=== PATIENT | male | born 1985 | race African-American/Black ===

== ENCOUNTER 2016-11-20 18:19 | Emergency (ER) | payer OTHER ==
[2016-11-20] MEDS ORDERED: ONDANSETRON 4MG/2ML VIAL (J2405) As Ordered ONE (18:39)
[2016-11-20] MEDS ORDERED: KETOROLAC 30 MG/ML VIAL (J1885) As Ordered ONE (18:39)
[2016-11-20 19:05] LABS: BASO # 0.1 K/mm3 (0.0-0.2); BASO % 0.7 % (0.0-1.0); EOS # 0.1 K/mm3 (0.0-0.50); EOS % 1.2 % (0.0-3.0); LARGE UNSTAINED CELL # 0.1 K/mm3 (0.0-0.4); LARGE UNSTAINED CELL % 0.6 % (0.0-4.0); LYMPH # 0.7 K/mm3 (1.5-4.5); LYMPH % 7.1 % (24.0-44.0); MEAN CORPUSCULAR HEMOGLOBIN 28.1 pg (27.0-33.0); MEAN CORPUSCULAR HGB CONC 32.6 g/dl (32.0-36.5); MEAN CORPUSCULAR VOLUME 86.1 fl (80.0-96.0); MONO # 0.4 K/mm3 (0.0-0.8); MONO % 4.2 % (0.0-5.0); NEUTROPHILS # 7.7 K/mm3 (1.8-7.7); NEUTROPHILS % 86.2 % (36.0-66.0); PLATELET COUNT, AUTOMATED 225 k/mm3 (150-450); RED CELL DISTRIBUTION WIDTH 13.1 % (11.5-14.5); WHITE BLOOD COUNT 8.9 K/mm3 (4.0-10.0)
--- NOTE | 2016-11-20 19:30 | REPUSA ---
CLINICAL HISTORY: Abdominal pain. TECHNIQUE: Multiple axial, sagittal and coronal CT images were obtained through the abdomen and pelvi s without administration of oral or IV contrast material. COMMENTS: The liver is of uniform attenuation without mass or defect. There is no intra or extrahepatic biliary ductal dilatation. The spleen is normal. The gallbladder is within normal limits. The pancreas is of normal contour and attenuation characteristics. There is no evidence of adrenal mass. The kidneys are normal in size, shape and configuration. No right renal or ureteral calculi are ident ified. 2 nonobstructing calculi noted in the midpole the left kidney measuring 2-3 mm each. There i s no hydroureter or hydronephrosis. There is no evidence for appendicitis. There is no bowel wall thickening. No evidence for small or la rge bowel obstruction. There is no evidence of abdominal ascites or lymphadenopathy. There is no evidence of intrinsic or extrinsic bladder mass. There is no pelvic ascites or lymphadeno daisha. Images of the lung bases show no evidence of pleural or parenchymal mass. There are no pleural effusi ons. The bony structures are free of lytic or blastic lesions. IMPRESSION: 2 nonobstructing calculi noted in the midpole the left kidney measuring 2-3 mm each. Thank you for your kind referral of this patient.
[2016-11-20 20:35] LABS: ALBUMIN 4.3 GM/DL (3.2-5.2); ALKALINE PHOSPHATASE 76 U/L (45-117); ALT/SGPT 17 U/L (12-78); AMYLASE 47 U/L (25-115); ANION GAP 8 MEQ/L (8-16); AST/SGOT 15 U/L (15-37); BILIRUBIN,DIRECT 0.2 MG/DL (0.0-0.2); BILIRUBIN,TOTAL 0.6 MG/DL (0.2-1.0); BLOOD UREA NITROGEN 10 MG/DL (7-18); CALCIUM LEVEL 9.2 MG/DL (8.5-10.1); CARBON DIOXIDE LEVEL 30 MEQ/L (21-32); CHLORIDE LEVEL 106 MEQ/L (98-107); CREATININE FOR GFR 1.13 MG/DL (0.70-1.30); GLOMERULAR FILTRATION RATE > 60.0 (>60); GLUCOSE, FASTING 95 MG/DL (70-105); SODIUM LEVEL 144 MEQ/L (136-145); TOTAL PROTEIN 7.6 GM/DL (6.4-8.2)
[2016-11-20] MEDS ORDERED: CIPROFLOXACIN 500 MG TAB As Ordered ONE (21:05)
--- NOTE | 2016-11-20 21:18 | EDDOCDS ---
Physician Documentation [facility] Name: Terell Knowles Age: 31 yrs Sex: Male : 1985 Arrival Date: 11/20/2016 Time: 18:19 Bed I6 / 28 Private MD: Unknown Pcp Disposition: 11/20/16 20:59 Discharged to Home/Self Care. Impression: Calculus of kidney - 2 MM, LEFT KIDNEY, NONOBSTRUCTING, Hematuria - RECENTLY PASSED STONE. - Condition is Stable. - Discharge Instructions: Kidney Stones. - Prescriptions for Cipro 500 mg Oral Tablet - take 1 tablet by ORAL route every 12 hours; 14 tablet. Ibuprofen 600 mg Oral Tablet - take 1 tablet by ORAL route every 6 hours As needed take with food; 30 tablet. Flomax 0.4 mg Oral Capsule, Sust. Release 24 hr - take 1 capsule by ORAL route once daily 1/2 hour following the same meal each day; 30 capsule. - Medication Reconciliation, Local Pharmacy Hours form. - Follow up: Ross Womack; When: 2 - 3 days; Reason: Recheck today's complaints, Continuance of care. - Problem is new. - Symptoms have improved. - Notes: USE MEDICATIONS INSTRUCTED, FOLLOW UP WITH DR WOMACK, RETURN TO THE ER IF THE SYMPTOMS WORSEN OR BECOME CONCERNING Historical: - Allergies: no known allergies; - Home Meds: 1. none - PMHx: back pain; - PSHx: none; - Social history: Smoking status: Patient states was never smoker of tobacco. No barriers to communication noted, The patient speaks fluent Arabic. - Family history: Not pertinent. - : The pt / caregiver states he / she is not on anticoagulants. Home medication list is obtained from the patient. - Exposure Risk Screening:: None identified. Vital Signs: 11/20 18:21 BP 162 / 85; Pulse 71; Resp 16; Temp 98.9; Pulse Ox 99% ; Weight 74.84 kg / 164.99 lbs; elp Height 5 ft. 9 in. (175.26 cm); Pain 10/10; 18:21 Body Mass Index 24.37 (74.84 kg, 175.26 cm) elp MDM: 18:33 Undress patient appropriately for examination ordered. ck7 18:33 IV Saline Lock ordered. ck7 18:33 NS 0.9% 1000 ml IV at bolus once ordered. ck7 18:33 ketorolac 30 mg IVP once ordered. ck7 18:33 Ondansetron 4 mg IVP once ordered. ck7 18:34 NOTHING BY MOUTH+DIET ordered. EDMS 18:34 Amylase Ordered. EDMS 18:35 Basic Metabolic Profile Ordered. EDMS 18:35 CBC with Diff Ordered. EDMS 18:35 Lipase Ordered. EDMS 18:35 Liver Profile Ordered. EDMS 18:35 Urinalysis Ordered. EDMS 18:35 Urine Culture Ordered. EDMS 18:35 CT ABD & PELVIS: No Contrast Ordered. EDMS 18:40 Financial registration complete. [email or web address] 18:44 [facility] Payment Agreement was scanned into [employer] and attached to record. ks16 19:07 Renal stone analysis Ordered. EDMS 20:51 CBC with Diff Reviewed. ck7 20:51 Lipase Reviewed. ck7 20:51 Urinalysis Reviewed. ck7 20:51 Amylase Reviewed. ck7 20:51 Basic Metabolic Profile Reviewed. ck7 20:51 Liver Profile Reviewed. ck7 20:51 CT ABD & PELVIS: No Contrast Reviewed. ck7 21:00 Ciprofloxacin 500 mg PO once ordered. ck7 Administered Medications: 18:53 Drug: NS 0.9% 1000 ml [sodium chloride 0.9 % intravenous solution] Route: IV; Rate: jmb bolus; Site: right antecubital; 21:15 Follow up: IV Status: Completed infusion cz 18:53 Drug: ketorolac 30 mg [ketorolac 30 mg/mL (1 mL) injection solution (1 mL)] Route: IVP; [facility] Site: right antecubital; 18:53 Drug: Ondansetron 4 mg [ondansetron HCl 2 mg/mL intravenous solution (2 mL)] Route: jmb IVP; Site: right antecubital; 21:14 Drug: Ciprofloxacin 500 mg [ciprofloxacin 500 mg tablet (1 tabs)] Route: PO; cz Signatures: [facility] Oneil Cain RN RN cz Raymond, Jessica, RN RN jjr Kwaczala, Christopher, RPA-C RPA-Cck7 Warren Hernandez RN RN jmb Sorenson, Kimberly, Reg Reg [email or web address] The chart was reviewed and I authenticate all verbal orders and agree with the evaluation and treatment provided.Attachments: 18:44 [facility] Payment Agreement [email or web address] [facility]
--- NOTE | 2016-11-20 21:19 | EDDOCDS ---
Nurse's Notes [facility] Name: Terell Knowles Age: 31 yrs Sex: Male : 1985 Arrival Date: 11/20/2016 Time: 18:19 Bed I6 / 28 Private MD: Unknown Pcp Diagnosis: Calculus of kidney-2 MM, LEFT KIDNEY, NONOBSTRUCTING;Hematuria-RECENTLY PASSED STONE Presentation: 11/20 18:25 Presenting complaint: Patient states: sudden onset RUQ pain radiating to right mid back jjr at 1600 today with one episode of vomiting. Acute neurological deficits are not present. Mechanism of Injury: No Mechanism of Injury. Adult Sepsis Screening: The patient does not have new or worsening altered mentation. Patient's respiratory rate is less than 22. Systolic blood pressure is greater than 100. Patient has a qSOFA score of 0- Negative Sepsis Screen. Suicide/Homicide risk assessment- the patient denies having any suicidal and/or homicidal ideations and does not present with any other emotional, behavioral or mental health complaints. Status: Patient is not a medical billing service or dependent. Transition of care: patient was not received from another setting of care. 18:25 Acuity: ADARSH Level 3 jjr 18:25 Method Of Arrival: Walkin/Carried/Asstd jjr Triage Assessment: 18:27 General: Appears in no apparent distress. Pain: Location: right upper quadrant. Pt jjr Declines HIV testing. Musculoskeletal: Reports pain in right mid back and right upper quadrant. Historical: - Allergies: no known allergies; - Home Meds: 1. none - PMHx: back pain; - PSHx: none; - Social history: Smoking status: Patient states was never smoker of tobacco. No barriers to communication noted, The patient speaks fluent Georgian. - Family history: Not pertinent. - : The pt / caregiver states he / she is not on anticoagulants. Home medication list is obtained from the patient. - Exposure Risk Screening:: None identified. Screenin:56 Screening information is obtained from the patient. Fall risk: No risks identified. jmb Assistance ADL's: requires no assistance with activities of daily living. Abuse/DV Screen: The patient / caregiver reports he/she is: not in a situation that causes fear, pain or injury. Nutritional screening: No deficits noted. home support is adequate. Assessment: 18:54 General: Appears in no apparent distress, Behavior is appropriate for age, cooperative. jmb General: Patient has cuffs on from correctional facility. Right cuff taken off by correction office for IV access. Left one intact. Circulation intact. Nail beds pink, pipe fitter welding equal. Bilateral pulses present. . Pain: Location: back and right mid back and abdomen and right upper quadrant Pain currently is 8 out of 10 on a pain scale. Neurological: Level of Consciousness is awake, alert, obeys commands, Oriented to person, place, time, Facility Security Officer are equal bilaterally Speech is normal. Cardiovascular: Capillary refill < 3 seconds Heart tones S1 S2 present Pulses are all present. Respiratory: Airway is patent Respiratory effort is even, unlabored, Respiratory pattern is regular, symmetrical, Breath sounds are clear bilaterally. GI: Abdomen is non- distended Bowel sounds present X 4 quads. Abd is soft X 4 quads. Derm: Skin is normal. Musculoskeletal: Range of motion intact in all extremities. 19:30 General: Appears in no apparent distress, comfortable, Behavior is appropriate for age, jmb cooperative. Neurological: Level of Consciousness is awake, alert, obeys commands, Oriented to person, place, time. Respiratory: Airway is patent Respiratory effort is even, unlabored, Respiratory pattern is regular, symmetrical. 20:04 General: Appears in no apparent distress, comfortable, Behavior is appropriate for age, jmb cooperative, Patient sitting on side of stretcher with correctional officers at bedside. Patient cuffs off arms. NO voiced complaints at this time. . Neurological: Level of Consciousness is awake, alert, obeys commands, Oriented to person, place, time. Respiratory: Airway is patent Respiratory effort is even, unlabored, Respiratory pattern is regular, symmetrical. 20:46 General: Appears in no apparent distress, comfortable, Behavior is appropriate for age, jmb cooperative, Patient sitting on side of stretcher with guards at bedside. Patient laughing and talking. NO voiced complaints at this time. . Neurological: Level of Consciousness is awake, alert, obeys commands. Respiratory: Airway is patent Respiratory effort is even, unlabored, Respiratory pattern is regular, symmetrical. Vital Signs: 18:21 BP 162 / 85; Pulse 71; Resp 16; Temp 98.9; Pulse Ox 99% ; Weight 74.84 kg; Height 5 ft. elp 9 in. (175.26 cm); Pain 10/10; 18:21 Body Mass Index 24.37 (74.84 kg, 175.26 cm) [facility] Vitals: 18:21 Log In Time: November 20, 2016 at 18:19. elp ED Course: 18:21 Patient visited by Raine Enrique PCA. elp 18:21 Unknown Pcp is Private Physician. elp 18:21 Patient moved to Waiting elp 18:22 Patient visited by Raine Enrique PCA. elp 18:22 Patient moved to Pre RCE elp 18:25 Patient moved to I6 / jjr 18:26 Triage Initiated jjr 18:29 [facility] Short [facility]C [facility] ck7 18:29 Sakshi Whitehead MD is Attending Physician. ck7 18:29 Patient visited by Mykel Short RPA-C. ck7 18:35 Patient visited by Jah Patterson PCA. [facility] 18:44 [facility] Payment Agreement was scanned into [employer] and attached to record. ks16 18:53 Patient name changed from Terell\S\\S\Benson\S\ to Terell\S\ \S\Benson. EDMS 18:53 Amylase Sent. jmb 18:53 Basic Metabolic Profile Sent. jmb 18:53 CBC with Diff Sent. jmb 18:53 Lipase Sent. jmb 18:53 Liver Profile Sent. jmb 18:56 The patient / caregiver is instructed regarding the plan of care and ED course. jmb 18:56 Inserted saline lock: 20 gauge in right antecubital area and blood collected. The b patient tolerated the procedure well. Labs drawn. (by ED staff). Sent per order to lab. 18:57 Patient visited by Warren Hernandez RN. jmb 19:09 Urinalysis Sent. jmb 19:09 Urine Culture Sent. jmb 19:12 Renal stone analysis Sent. jmb 19:30 Patient visited by Mykel Short RPA-C. ck7 19:59 CT ABD & PELVIS: No Contrast Returned. EDMS 20:06 Patient visited by Warren Hernandez RN. jmb 20:47 Patient visited by Warren Hernandez RN. jmb 20:59 Ross Gabriel is Referral Physician. ck7 21:17 No procedures done that require assistance. cz Administered Medications: 18:53 Drug: NS 0.9% 1000 ml [sodium chloride 0.9 % intravenous solution] Route: IV; Rate: jmb bolus; Site: right antecubital; 21:15 Follow up: IV Status: Completed infusion cz 18:53 Drug: ketorolac 30 mg [ketorolac 30 mg/mL (1 mL) injection solution (1 mL)] Route: IVP; jmb Site: right antecubital; 18:53 Drug: Ondansetron 4 mg [ondansetron HCl 2 mg/mL intravenous solution (2 mL)] Route: jmb IVP; Site: right antecubital; 21:14 Drug: Ciprofloxacin 500 mg [ciprofloxacin 500 mg tablet (1 tabs)] Route: PO; cz Order Results: Lab Order: Amylase; SPEC'M 11/20/16 19:48 Test: AMYLASE; Value: 47; Range: 25-115; Units: U/L; Status: F Lab Order: Basic Metabolic Profile; SPEC'M 11/20/16 19:48 Test: GLUCOSE, FASTING; Value: 95; Range: 70-105; Units: MG/DL; Status: F Test: BLOOD UREA NITROGEN; Value: 10; Range: 7-18; Units: MG/DL; Status: F Test: CREATININE FOR GFR; Value: 1.13; Range: 0.70-1.30; Units: MG/DL; Status: F Test: GLOMERULAR FILTRATION RATE; Value: > 60.0; Range: >60; Status: F Test: SODIUM LEVEL; Value: 144; Range: 136-145; Units: MEQ/L; Status: F Test: POTASSIUM SERUM; Value: 4.0; Range: 3.5-5.1; Units: MEQ/L; Status: F Test: CHLORIDE LEVEL; Value: 106; Range: 98-107; Units: MEQ/L; Status: F Test: CARBON DIOXIDE LEVEL; Value: 30; Range: 21-32; Units: MEQ/L; Status: F Test: ANION GAP; Value: 8; Range: 8-16; Units: MEQ/L; Status: F Test: CALCIUM LEVEL; Value: 9.2; Range: 8.5-10.1; Units: MG/DL; Status: F Test Note: ; Units are mL/min/1.73 m2 Chronic Kidney Disease Staging per NKF: Stage I & II GFR >=60 Normal to Mildly Decreased Stage III GFR 30-59 Moderately Decreased Stage IV GFR 15-29 Severely Decreased Stage V GFR <15 Very Little GFR Left ESRD GFR <15 on INSIDE PHONE SALES Lab Order: CBC with Diff; JOSUE 11/20/16 18:50 Test: WHITE BLOOD COUNT; Value: 8.9; Range: 4.0-10.0; Units: K/mm3; Status: F Test: RED BLOOD COUNT; Value: 4.64; Range: 4.30-6.10; Units: M/mm3; Status: F Test: HEMOGLOBIN; Value: 13.0; Range: 14.0-18.0; Abnormal: Below low normal; Units: g/dl; Status: F Test: HEMATOCRIT; Value: 39.9; Range: 42.0-52.0; Abnormal: Below low normal; Units: %; Status: F Test: MEAN CORPUSCULAR VOLUME; Value: 86.1; Range: 80.0-96.0; Units: fl; Status: F Test: MEAN CORPUSCULAR HEMOGLOBIN; Value: 28.1; Range: 27.0-33.0; Units: pg; Status: F Test: MEAN CORPUSCULAR HGB CONC; Value: 32.6; Range: 32.0-36.5; Units: g/dl; Status: F Test: RED CELL DISTRIBUTION WIDTH; Value: 13.1; Range: 11.5-14.5; Units: %; Status: F Test: PLATELET COUNT, AUTOMATED; Value: 225; Range: 150-450; Units: k/mm3; Status: F Test: NEUTROPHILS %; Value: 86.2; Range: 36.0-66.0; Abnormal: Above high normal; Units: %; Status: F Test: LYMPH %; Value: 7.1; Range: 24.0-44.0; Abnormal: Below low normal; Units: %; Status: F Test: MONO %; Value: 4.2; Range: 0.0-5.0; Units: %; Status: F Test: EOS %; Value: 1.2; Range: 0.0-3.0; Units: %; Status: F Test: BASO %; Value: 0.7; Range: 0.0-1.0; Units: %; Status: F Test: LARGE UNSTAINED CELL %; Value: 0.6; Range: 0.0-4.0; Units: %; Status: F Test: NEUTROPHILS #; Value: 7.7; Range: 1.8-7.7; Units: K/mm3; Status: F Test: LYMPH #; Value: 0.7; Range: 1.5-4.5; Abnormal: Below low normal; Units: K/mm3; Status: F Test: MONO #; Value: 0.4; Range: 0.0-0.8; Units: K/mm3; Status: F Test: EOS #; Value: 0.1; Range: 0.0-0.50; Units: K/mm3; Status: F Test: BASO #; Value: 0.1; Range: 0.0-0.2; Units: K/mm3; Status: F Test: LARGE UNSTAINED CELL #; Value: 0.1; Range: 0.0-0.4; Units: K/mm3; Status: F Lab Order: Lipase; SPEC'M 11/20/16 19:48 Test: LIPASE; Value: 57; Range: 73-393; Abnormal: Below low normal; Units: U/L; Status: F Lab Order: Liver Profile; SPEC'M 11/20/16 19:48 Test: AST/SGOT; Value: 15; Range: 15-37; Units: U/L; Status: F Test: ALT/SGPT; Value: 17; Range: 12-78; Units: U/L; Status: F Test: ALKALINE PHOSPHATASE; Value: 76; Range: 45-117; Units: U/L; Status: F Test: BILIRUBIN,TOTAL; Value: 0.6; Range: 0.2-1.0; Units: MG/DL; Status: F Test: BILIRUBIN,DIRECT; Value: 0.2; Range: 0.0-0.2; Units: MG/DL; Status: F Test: TOTAL PROTEIN; Value: 7.6; Range: 6.4-8.2; Units: GM/DL; Status: F Test: ALBUMIN; Value: 4.3; Range: 3.2-5.2; Units: GM/DL; Status: F Test: ALBUMIN/GLOBULIN RATIO; Value: 1.30; Range: 1.00-1.93; Status: F Lab Order: Urinalysis; SPEC'M 11/20/16 19:03 Test: APPEARANCE, URINE; Value: CLEAR; Range: CLEAR; Status: F Test: COLOR, URINE; Value: YELLOW; Range: YELLOW; Status: F Test: PH,URINE; Value: 7.0; Range: 5.0-9.0; Units: UNITS; Status: F Test: SPECIFIC GRAVITY URINE AUTO; Value: 1.009; Range: 1.002-1.035; Status: F Test: PROTEIN, URINE AUTO; Value: NEGATIVE; Range: NEGATIVE; Units: mg/dL; Status: F Test: GLUCOSE, URINE (UA) AUTO; Value: NEGATIVE; Range: NEGATIVE; Units: mg/dL; Status: F Test: KETONE, URINE AUTO; Value: NEGATIVE; Range: NEGATIVE; Units: mg/dL; Status: F Test: UROBILINOGEN, URINE AUTO; Value: 0.2; Range: 0.0-2.0; Units: mg/dL; Status: F Test: BILIRUBIN, URINE AUTO; Value: NEGATIVE; Range: NEGATIVE; Status: F Test: NITRITE, URINE AUTO; Value: NEGATIVE; Range: NEGATIVE; Status: F Test: LEUKOCYTE ESTERASE, URINE AUTO; Value: NEGATIVE; Range: NEGATIVE; Status: F Test: BLOOD, URINE BLOOD; Value: 1+; Range: NEGATIVE; Abnormal: Above high normal; Status: F Test: WBC, URINE AUTO; Value: 1; Range: 0-3; Units: /HPF; Status: F Test: RBC, URINE AUTO; Value: 51; Range: 0-3; Abnormal: Above high normal; Units: /HPF; Status: F Test: BACTERIA, URINE AUTO; Value: NEGATIVE; Range: NEGATIVE; Status: F Test: SQUAMOUS EPITHELIAL CELL UR AU; Value: 0; Range: 0-6; Units: /HPF; Status: F Test: HYALINE CAST, URINE AUTO; Value: 0; Range: 0-1; Units: /LPF; Status: F Radiology Order: CT ABD & PELVIS: No Contrast Test: CT ABD & PELVIS: No Contrast REASON FOR EXAMINATION: right cva pain, N/V, r/o renal stone; ; CLINICAL HISTORY: Abdominal pain.; TECHNIQUE: Multiple axial, sagittal and coronal CT images were obtained through the abdomen and pelvi; s without administration of oral or IV contrast material.; COMMENTS:; The liver is of uniform attenuation without mass or defect. There is no intra or extrahepatic biliary; ductal dilatation. The spleen is normal. The gallbladder is within normal limits. The pancreas is of; normal contour and attenuation characteristics. There is no evidence of adrenal mass.; The kidneys are normal in size, shape and configuration. No right renal or ureteral calculi are ident; ified. 2 nonobstructing calculi noted in the midpole the left kidney measuring 2-3 mm each. There i; s no hydroureter or hydronephrosis.; There is no evidence for appendicitis. There is no bowel wall thickening. No evidence for small or la; rge bowel obstruction. There is no evidence of abdominal ascites or lymphadenopathy.; There is no evidence of intrinsic or extrinsic bladder mass. There is no pelvic ascites or lymphadeno; daisha.; Images of the lung bases show no evidence of pleural or parenchymal mass. There are no pleural effusi; ons.; The bony structures are free of lytic or blastic lesions.; IMPRESSION:; 2 nonobstructing calculi noted in the midpole the left kidney measuring 2-3 mm each.; Thank you for your kind referral of this patient.; ; Outcome: 20:59 Discharge ordered by Provider. ck7 21:15 Discharge Assessment: Patient awake, alert and oriented x 3. No cognitive and/or cz functional deficits noted. Patient verbalized understanding of disposition instructions. patient administered narcotics - no. The following High Risk Discharge criteria are identified: None. Discharged to pt discharged back to [facility] with 2 officers. Condition: stable. Discharge instructions given to patient, police, Instructed on discharge instructions, follow up and referral plans. medication usage, Demonstrated understanding of instructions, medications, Pt was receptive of discharge instructions/ teaching. Prescriptions given X 3. CT Study completed. Property :Personal belongings accompany Pt. 21:18 Patient left the ED. cz Signatures: Dispatcher [employer] EDMS Oneil Cain RN RN cz Raymond, Jessica, RN RN jjr Kwaczala, Christopher, RPA-C RPA-Cck7 Raine Enrique, SALESPERSON CORSETS SALESPERSON CORSETS janetp Warren Hernandez,MALKA RN Jah Stewart, SALESPERSON CORSETS SALESPERSON CORSETS Angela Jett, Reg Reg [email or web address] DELPHINED
--- NOTE | 2016-11-22 22:19 | EDDOCDS ---
[facility]ation [facility] Name: Terell Knowles Age: 31 yrs Sex: Male : 1985 Arrival Date: 11/20/2016 Time: 18:19 Bed I6 / 28 Private MD: Unknown Pcp Disposition: 11/20/16 20:59 Discharged to Home/Self Care. Impression: Calculus of kidney - 2 MM, LEFT KIDNEY, NONOBSTRUCTING, Hematuria - RECENTLY PASSED STONE. - Condition is Stable. - Discharge Instructions: Kidney Stones. - Prescriptions for Cipro 500 mg Oral Tablet - take 1 tablet by ORAL route every 12 hours; 14 tablet. Ibuprofen 600 mg Oral Tablet - take 1 tablet by ORAL route every 6 hours As needed take with food; 30 tablet. Flomax 0.4 mg Oral Capsule, Sust. Release 24 hr - take 1 capsule by ORAL route once daily 1/2 hour following the same meal each day; 30 capsule. - Medication Reconciliation, Local Pharmacy Hours form. - Follow up: Ross Womack; When: 2 - 3 days; Reason: Recheck today's complaints, Continuance of care. - Problem is new. - Symptoms have improved. - Notes: USE MEDICATIONS INSTRUCTED, FOLLOW UP WITH DR WOMACK, RETURN TO THE ER IF THE SYMPTOMS WORSEN OR BECOME CONCERNING Historical: - Allergies: no known allergies; - Home Meds: 1. none - PMHx: back pain; - PSHx: none; - Social history: Smoking status: Patient states was never smoker of tobacco. No barriers to communication noted, The patient speaks fluent Persian. - Family history: Not pertinent. - : The pt / caregiver states he / she is not on anticoagulants. Home medication list is obtained from the patient. - Exposure Risk Screening:: None identified. Vital Signs: 11/20 18:21 BP 162 / 85; Pulse 71; Resp 16; Temp 98.9; Pulse Ox 99% ; Weight 74.84 kg / 164.99 lbs; elp Height 5 ft. 9 in. (175.26 cm); Pain 10/10; 18:21 Body Mass Index 24.37 (74.84 kg, 175.26 cm) elp MDM: 18:33 Undress patient appropriately for examination ordered. ck7 18:33 IV Saline Lock ordered. ck7 18:33 NS 0.9% 1000 ml IV at bolus once ordered. ck7 18:33 ketorolac 30 mg IVP once ordered. ck7 18:33 Ondansetron 4 mg IVP once ordered. ck7 18:34 NOTHING BY MOUTH+DIET ordered. EDMS 18:34 Amylase Ordered. EDMS 18:35 Basic Metabolic Profile Ordered. EDMS 18:35 CBC with Diff Ordered. EDMS 18:35 Lipase Ordered. EDMS 18:35 Liver Profile Ordered. EDMS 18:35 Urinalysis Ordered. EDMS 18:35 Urine Culture Ordered. EDMS 18:35 CT ABD & PELVIS: No Contrast Ordered. EDMS 18:40 Financial registration complete. ks16 18:44 [facility] Payment Agreement was scanned into [employer] and attached to record. ks16 19:07 Renal stone analysis Ordered. EDMS 20:51 CBC with Diff Reviewed. ck7 20:51 Lipase Reviewed. ck7 20:51 Urinalysis Reviewed. ck7 20:51 Amylase Reviewed. ck7 20:51 Basic Metabolic Profile Reviewed. ck7 20:51 Liver Profile Reviewed. ck7 20:51 CT ABD & PELVIS: No Contrast Reviewed. ck7 21:00 Ciprofloxacin 500 mg PO once ordered. ck7 11/21 10:52 T-Sheet-- Draft Copy was scanned into [employer] and attached to record. gb Administered Medications: 11/20 18:53 Drug: NS 0.9% 1000 ml [sodium chloride 0.9 % intravenous solution] Route: IV; Rate: jmb bolus; Site: right antecubital; 21:15 Follow up: IV Status: Completed infusion 18:53 Drug: ketorolac 30 mg [ketorolac 30 mg/mL (1 mL) injection solution (1 mL)] Route: IVP; jmb Site: right antecubital; 18:53 Drug: Ondansetron 4 mg [ondansetron HCl 2 mg/mL intravenous solution (2 mL)] Route: jmb IVP; Site: right antecubital; 21:14 Drug: Ciprofloxacin 500 mg [ciprofloxacin 500 mg tablet (1 tabs)] Route: PO; cz Signatures: Dispatcher [employer] EDMS Oneil Cain RN RN cz Barnhardt, Gloria, Reg Reg gb Josi Chance RN RN jjr Kwaczala, Christopher, PRASANNA-C RPA-[facility] HospitalWarren Nieto RN RN jmb Reyna, Angela, Reg Reg [email or web address] The chart was reviewed and I authenticate all verbal orders and agree with the evaluation and treatment provided.Attachments: 18:44 [facility] Payment Agreement [email or web address] 11/21 10:52 T-Sheet-- Draft Copy gb Chart Complete MTDD
--- NOTE | 2016-11-22 22:19 | EDDOCDS ---
Physician Documentation [facility] Name: Terell Knowles Age: 31 yrs Sex: Male : 1985 Arrival Date: 11/20/2016 Time: 18:19 Bed I6 / 28 Private MD: Unknown Pcp Disposition: 11/20/16 20:59 Discharged to Home/Self Care. Impression: Calculus of kidney - 2 MM, LEFT KIDNEY, NONOBSTRUCTING, Hematuria - RECENTLY PASSED STONE. - Condition is Stable. - Discharge Instructions: Kidney Stones. - Prescriptions for Cipro 500 mg Oral Tablet - take 1 tablet by ORAL route every 12 hours; 14 tablet. Ibuprofen 600 mg Oral Tablet - take 1 tablet by ORAL route every 6 hours As needed take with food; 30 tablet. Flomax 0.4 mg Oral Capsule, Sust. Release 24 hr - take 1 capsule by ORAL route once daily 1/2 hour following the same meal each day; 30 capsule. - Medication Reconciliation, Local Pharmacy Hours form. - Follow up: Ross Womack; When: 2 - 3 days; Reason: Recheck today's complaints, Continuance of care. - Problem is new. - Symptoms have improved. - Notes: USE MEDICATIONS INSTRUCTED, FOLLOW UP WITH DR WOMACK, RETURN TO THE ER IF THE SYMPTOMS WORSEN OR BECOME CONCERNING Historical: - Allergies: no known allergies; - Home Meds: 1. none - PMHx: back pain; - PSHx: none; - Social history: Smoking status: Patient states was never smoker of tobacco. No barriers to communication noted, The patient speaks fluent Kinyarwanda. - Family history: Not pertinent. - : The pt / caregiver states he / she is not on anticoagulants. Home medication list is obtained from the patient. - Exposure Risk Screening:: None identified. Vital Signs: 11/20 18:21 BP 162 / 85; Pulse 71; Resp 16; Temp 98.9; Pulse Ox 99% ; Weight 74.84 kg / 164.99 lbs; elp Height 5 ft. 9 in. (175.26 cm); Pain 10/10; 18:21 Body Mass Index 24.37 (74.84 kg, 175.26 cm) elp MDM: 18:33 Undress patient appropriately for examination ordered. ck7 18:33 IV Saline Lock ordered. ck7 18:33 NS 0.9% 1000 ml IV at bolus once ordered. ck7 18:33 ketorolac 30 mg IVP once ordered. ck7 18:33 Ondansetron 4 mg IVP once ordered. ck7 18:34 NOTHING BY MOUTH+DIET ordered. EDMS 18:34 Amylase Ordered. EDMS 18:35 Basic Metabolic Profile Ordered. EDMS 18:35 CBC with Diff Ordered. EDMS 18:35 Lipase Ordered. EDMS 18:35 Liver Profile Ordered. EDMS 18:35 Urinalysis Ordered. EDMS 18:35 Urine Culture Ordered. EDMS 18:35 CT ABD & PELVIS: No Contrast Ordered. EDMS 18:40 Financial registration complete. [email or web address] 18:44 [facility] Payment Agreement was scanned into [employer] and attached to record. ks16 19:07 Renal stone analysis Ordered. EDMS 20:51 CBC with Diff Reviewed. ck7 20:51 Lipase Reviewed. ck7 20:51 Urinalysis Reviewed. ck7 20:51 Amylase Reviewed. ck7 20:51 Basic Metabolic Profile Reviewed. ck7 20:51 Liver Profile Reviewed. ck7 20:51 CT ABD & PELVIS: No Contrast Reviewed. ck7 21:00 Ciprofloxacin 500 mg PO once ordered. ck7 11/21 10:52 T-Sheet-- Draft Copy was scanned into [employer] and attached to record. gb Administered Medications: 11/20 18:53 Drug: NS 0.9% 1000 ml [sodium chloride 0.9 % intravenous solution] Route: IV; Rate: jmb bolus; Site: right antecubital; 21:15 Follow up: IV Status: Completed infusion 18:53 Drug: ketorolac 30 mg [ketorolac 30 mg/mL (1 mL) injection solution (1 mL)] Route: IVP; jmb Site: right antecubital; 18:53 Drug: Ondansetron 4 mg [ondansetron HCl 2 mg/mL intravenous solution (2 mL)] Route: jmb IVP; Site: right antecubital; 21:14 Drug: Ciprofloxacin 500 mg [ciprofloxacin 500 mg tablet (1 tabs)] Route: PO; cz Signatures: Dispatcher [employer] EDMS Oneil Cain RN RN cz Barnhardt, Gloria, Reg Reg gb Josi Chance RN RN jjr Kwaczala, Christopher, PRASANNA-C RPA-[facility] HospitalWarren Nieto RN RN jmb Reyna, Angela, Reg Reg [email or web address] The chart was reviewed and I authenticate all verbal orders and agree with the evaluation and treatment provided.Attachments: 18:44 [facility] Payment Agreement [email or web address] 11/21 10:52 T-Sheet-- Draft Copy gb Chart Complete MTDD
--- NOTE | 2016-11-22 22:19 | EDDOCDS ---
Nurse's Notes [facility] Name: Terell Knowles Age: 31 yrs Sex: Male : 1985 Arrival Date: 11/20/2016 Time: 18:19 Bed I6 / 28 Private MD: Unknown Pcp Diagnosis: Calculus of kidney-2 MM, LEFT KIDNEY, NONOBSTRUCTING;Hematuria-RECENTLY PASSED STONE Presentation: 11/20 18:25 Presenting complaint: Patient states: sudden onset RUQ pain radiating to right mid back jjr at 1600 today with one episode of vomiting. Acute neurological deficits are not present. Mechanism of Injury: No Mechanism of Injury. Adult Sepsis Screening: The patient does not have new or worsening altered mentation. Patient's respiratory rate is less than 22. Systolic blood pressure is greater than 100. Patient has a qSOFA score of 0- Negative Sepsis Screen. Suicide/Homicide risk assessment- the patient denies having any suicidal and/or homicidal ideations and does not present with any other emotional, behavioral or mental health complaints. 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 Transition of care: patient was not received from another setting of care. 18:25 Acuity: ADARSH Level 3 jjr 18:25 Method Of Arrival: Walkin/Carried/Asstd jjr Triage Assessment: 18:27 General: Appears in no apparent distress. Pain: Location: right upper quadrant. Pt jjr Declines HIV testing. Musculoskeletal: Reports pain in right mid back and right upper quadrant. Historical: - Allergies: no known allergies; - Home Meds: 1. none - PMHx: back pain; - PSHx: none; - Social history: Smoking status: Patient states was never smoker of tobacco. No barriers to communication noted, The patient speaks fluent Bengali. - Family history: Not pertinent. - : The pt / caregiver states he / she is not on anticoagulants. Home medication list is obtained from the patient. - Exposure Risk Screening:: None identified. Screenin:56 Screening information is obtained from the patient. Fall risk: No risks identified. jmb Assistance ADL's: requires no assistance with activities of daily living. Abuse/DV Screen: The patient / caregiver reports he/she is: not in a situation that causes fear, pain or injury. Nutritional screening: No deficits noted. home support is adequate. Assessment: 18:54 General: Appears in no apparent distress, Behavior is appropriate for age, cooperative. jmb General: Patient has cuffs on from correctional facility. Right cuff taken off by correction office for IV access. Left one intact. Circulation intact. Nail beds pink, flattening press operator equal. Bilateral pulses present. . Pain: Location: back and right mid back and abdomen and right upper quadrant Pain currently is 8 out of 10 on a pain scale. Neurological: Level of Consciousness is awake, alert, obeys commands, Oriented to person, place, time, Local Company Tanker Driver are equal bilaterally Speech is normal. Cardiovascular: Capillary refill < 3 seconds Heart tones S1 S2 present Pulses are all present. Respiratory: Airway is patent Respiratory effort is even, unlabored, Respiratory pattern is regular, symmetrical, Breath sounds are clear bilaterally. GI: Abdomen is non- distended Bowel sounds present X 4 quads. Abd is soft X 4 quads. Derm: Skin is normal. Musculoskeletal: Range of motion intact in all extremities. 19:30 General: Appears in no apparent distress, comfortable, Behavior is appropriate for age, jmb cooperative. Neurological: Level of Consciousness is awake, alert, obeys commands, Oriented to person, place, time. Respiratory: Airway is patent Respiratory effort is even, unlabored, Respiratory pattern is regular, symmetrical. 20:04 General: Appears in no apparent distress, comfortable, Behavior is appropriate for age, jmb cooperative, Patient sitting on side of stretcher with correctional officers at bedside. Patient cuffs off arms. NO voiced complaints at this time. . Neurological: Level of Consciousness is awake, alert, obeys commands, Oriented to person, place, time. Respiratory: Airway is patent Respiratory effort is even, unlabored, Respiratory pattern is regular, symmetrical. 20:46 General: Appears in no apparent distress, comfortable, Behavior is appropriate for age, jmb cooperative, Patient sitting on side of stretcher with guards at bedside. Patient laughing and talking. NO voiced complaints at this time. . Neurological: Level of Consciousness is awake, alert, obeys commands. Respiratory: Airway is patent Respiratory effort is even, unlabored, Respiratory pattern is regular, symmetrical. Vital Signs: 18:21 BP 162 / 85; Pulse 71; Resp 16; Temp 98.9; Pulse Ox 99% ; Weight 74.84 kg; Height 5 ft. elp 9 in. (175.26 cm); Pain 10/10; 18:21 Body Mass Index 24.37 (74.84 kg, 175.26 cm) [facility] Vitals: 18:21 Log In Time: November 20, 2016 at 18:19. elp ED Course: 18:21 Patient visited by Raine Enrique PCA. elp 18:21 Unknown Pcp is Private Physician. elp 18:21 Patient moved to Waiting elp 18:22 Patient visited by Raine Enrique PCA. elp 18:22 Patient moved to Pre RCE elp 18:25 Patient moved to I6 / jjr 18:26 Triage Initiated jjr 18:29 Mykel Short R[facility]-C [facility] ck7 18:29 Sakshi Whitehead MD is Attending Physician. ck7 18:29 Patient visited by Mykel Short RPA-C. ck7 18:35 Patient visited by Jah Patterson PCA. [facility] 18:44 [facility] Payment Agreement was scanned into [employer] and attached to record. ks16 18:53 Patient name changed from Terell\S\\S\Benson\S\ to Terell\S\ \S\Benson. EDMS 18:53 Amylase Sent. jmb 18:53 Basic Metabolic Profile Sent. jmb 18:53 CBC with Diff Sent. jmb 18:53 Lipase Sent. jmb 18:53 Liver Profile Sent. jmb 18:56 The patient / caregiver is instructed regarding the plan of care and ED course. jmb 18:56 Inserted saline lock: 20 gauge in right antecubital area and blood collected. The b patient tolerated the procedure well. Labs drawn. (by ED staff). Sent per order to lab. 18:57 Patient visited by Warren Hernandez RN. jmb 19:09 Urinalysis Sent. jmb 19:09 Urine Culture Sent. jmb 19:12 Renal stone analysis Sent. jmb 19:30 Patient visited by Mykel Short RPA-C. ck7 19:59 CT ABD & PELVIS: No Contrast Returned. EDMS 20:06 Patient visited by Warren Hernandez RN. jmb 20:47 Patient visited by Warren Hernandez RN. jmb 20:59 Ross Gabriel is Referral Physician. ck7 21:17 No procedures done that require assistance. cz 11/21 10:52 T-Sheet-- Draft Copy was scanned into [employer] and attached to record. gb Administered Medications: 11/20 18:53 Drug: NS 0.9% 1000 ml [sodium chloride 0.9 % intravenous solution] Route: IV; Rate: jmb bolus; Site: right antecubital; 21:15 Follow up: IV Status: Completed infusion cz 18:53 Drug: ketorolac 30 mg [ketorolac 30 mg/mL (1 mL) injection solution (1 mL)] Route: IVP; jmb Site: right antecubital; 18:53 Drug: Ondansetron 4 mg [ondansetron HCl 2 mg/mL intravenous solution (2 mL)] Route: jmb IVP; Site: right antecubital; 21:14 Drug: Ciprofloxacin 500 mg [ciprofloxacin 500 mg tablet (1 tabs)] Route: PO; cz Order Results: Lab Order: Amylase; SPEC'M 11/20/16 19:48 Test: AMYLASE; Value: 47; Range: 25-115; Units: U/L; Status: F Lab Order: Basic Metabolic Profile; SPEC'M 11/20/16 19:48 Test: GLUCOSE, FASTING; Value: 95; Range: 70-105; Units: MG/DL; Status: F Test: BLOOD UREA NITROGEN; Value: 10; Range: 7-18; Units: MG/DL; Status: F Test: CREATININE FOR GFR; Value: 1.13; Range: 0.70-1.30; Units: MG/DL; Status: F Test: GLOMERULAR FILTRATION RATE; Value: > 60.0; Range: >60; Status: F Test: SODIUM LEVEL; Value: 144; Range: 136-145; Units: MEQ/L; Status: F Test: POTASSIUM SERUM; Value: 4.0; Range: 3.5-5.1; Units: MEQ/L; Status: F Test: CHLORIDE LEVEL; Value: 106; Range: 98-107; Units: MEQ/L; Status: F Test: CARBON DIOXIDE LEVEL; Value: 30; Range: 21-32; Units: MEQ/L; Status: F Test: ANION GAP; Value: 8; Range: 8-16; Units: MEQ/L; Status: F Test: CALCIUM LEVEL; Value: 9.2; Range: 8.5-10.1; Units: MG/DL; Status: F Test Note: ; Units are mL/min/1.73 m2 Chronic Kidney Disease Staging per NKF: Stage I & II GFR >=60 Normal to Mildly Decreased Stage III GFR 30-59 Moderately Decreased Stage IV GFR 15-29 Severely Decreased Stage V GFR <15 Very Little GFR Left ESRD GFR <15 on ALINING INSPECTOR Lab Order: CBC with Diff; SPEC'M 11/20/16 18:50 Test: WHITE BLOOD COUNT; Value: 8.9; Range: 4.0-10.0; Units: K/mm3; Status: F Test: RED BLOOD COUNT; Value: 4.64; Range: 4.30-6.10; Units: M/mm3; Status: F Test: HEMOGLOBIN; Value: 13.0; Range: 14.0-18.0; Abnormal: Below low normal; Units: g/dl; Status: F Test: HEMATOCRIT; Value: 39.9; Range: 42.0-52.0; Abnormal: Below low normal; Units: %; Status: F Test: MEAN CORPUSCULAR VOLUME; Value: 86.1; Range: 80.0-96.0; Units: fl; Status: F Test: MEAN CORPUSCULAR HEMOGLOBIN; Value: 28.1; Range: 27.0-33.0; Units: pg; Status: F Test: MEAN CORPUSCULAR HGB CONC; Value: 32.6; Range: 32.0-36.5; Units: g/dl; Status: F Test: RED CELL DISTRIBUTION WIDTH; Value: 13.1; Range: 11.5-14.5; Units: %; Status: F Test: PLATELET COUNT, AUTOMATED; Value: 225; Range: 150-450; Units: k/mm3; Status: F Test: NEUTROPHILS %; Value: 86.2; Range: 36.0-66.0; Abnormal: Above high normal; Units: %; Status: F Test: LYMPH %; Value: 7.1; Range: 24.0-44.0; Abnormal: Below low normal; Units: %; Status: F Test: MONO %; Value: 4.2; Range: 0.0-5.0; Units: %; Status: F Test: EOS %; Value: 1.2; Range: 0.0-3.0; Units: %; Status: F Test: BASO %; Value: 0.7; Range: 0.0-1.0; Units: %; Status: F Test: LARGE UNSTAINED CELL %; Value: 0.6; Range: 0.0-4.0; Units: %; Status: F Test: NEUTROPHILS #; Value: 7.7; Range: 1.8-7.7; Units: K/mm3; Status: F Test: LYMPH #; Value: 0.7; Range: 1.5-4.5; Abnormal: Below low normal; Units: K/mm3; Status: F Test: MONO #; Value: 0.4; Range: 0.0-0.8; Units: K/mm3; Status: F Test: EOS #; Value: 0.1; Range: 0.0-0.50; Units: K/mm3; Status: F Test: BASO #; Value: 0.1; Range: 0.0-0.2; Units: K/mm3; Status: F Test: LARGE UNSTAINED CELL #; Value: 0.1; Range: 0.0-0.4; Units: K/mm3; Status: F Lab Order: Lipase; SPEC'M 11/20/16 19:48 Test: LIPASE; Value: 57; Range: 73-393; Abnormal: Below low normal; Units: U/L; Status: F Lab Order: Liver Profile; SPEC' 11/20/16 19:48 Test: AST/SGOT; Value: 15; Range: 15-37; Units: U/L; Status: F Test: ALT/SGPT; Value: 17; Range: 12-78; Units: U/L; Status: F Test: ALKALINE PHOSPHATASE; Value: 76; Range: 45-117; Units: U/L; Status: F Test: BILIRUBIN,TOTAL; Value: 0.6; Range: 0.2-1.0; Units: MG/DL; Status: F Test: BILIRUBIN,DIRECT; Value: 0.2; Range: 0.0-0.2; Units: MG/DL; Status: F Test: TOTAL PROTEIN; Value: 7.6; Range: 6.4-8.2; Units: GM/DL; Status: F Test: ALBUMIN; Value: 4.3; Range: 3.2-5.2; Units: GM/DL; Status: F Test: ALBUMIN/GLOBULIN RATIO; Value: 1.30; Range: 1.00-1.93; Status: F Lab Order: Urinalysis; SPEC'M 11/20/16 19:03 Test: APPEARANCE, URINE; Value: CLEAR; Range: CLEAR; Status: F Test: COLOR, URINE; Value: YELLOW; Range: YELLOW; Status: F Test: PH,URINE; Value: 7.0; Range: 5.0-9.0; Units: UNITS; Status: F Test: SPECIFIC GRAVITY URINE AUTO; Value: 1.009; Range: 1.002-1.035; Status: F Test: PROTEIN, URINE AUTO; Value: NEGATIVE; Range: NEGATIVE; Units: mg/dL; Status: F Test: GLUCOSE, URINE (UA) AUTO; Value: NEGATIVE; Range: NEGATIVE; Units: mg/dL; Status: F Test: KETONE, URINE AUTO; Value: NEGATIVE; Range: NEGATIVE; Units: mg/dL; Status: F Test: UROBILINOGEN, URINE AUTO; Value: 0.2; Range: 0.0-2.0; Units: mg/dL; Status: F Test: BILIRUBIN, URINE AUTO; Value: NEGATIVE; Range: NEGATIVE; Status: F Test: NITRITE, URINE AUTO; Value: NEGATIVE; Range: NEGATIVE; Status: F Test: LEUKOCYTE ESTERASE, URINE AUTO; Value: NEGATIVE; Range: NEGATIVE; Status: F Test: BLOOD, URINE BLOOD; Value: 1+; Range: NEGATIVE; Abnormal: Above high normal; Status: F Test: WBC, URINE AUTO; Value: 1; Range: 0-3; Units: /HPF; Status: F Test: RBC, URINE AUTO; Value: 51; Range: 0-3; Abnormal: Above high normal; Units: /HPF; Status: F Test: BACTERIA, URINE AUTO; Value: NEGATIVE; Range: NEGATIVE; Status: F Test: SQUAMOUS EPITHELIAL CELL UR AU; Value: 0; Range: 0-6; Units: /HPF; Status: F Test: HYALINE CAST, URINE AUTO; Value: 0; Range: 0-1; Units: /LPF; Status: F Lab Order: Urine Culture; SPEC'M 11/20/16 19:03 Test: URINE CULTURE; Value: <EXTERNAL COMMENT eCWMed> FULL REPORT IN LAB NOTES (eCW and Medent).; Status: F Test: URINE CULTURE; Value: URINE CULTURE RESULT NO GROWTH; Status: F Radiology Order: CT ABD & PELVIS: No Contrast Test: CT ABD & PELVIS: No Contrast REASON FOR EXAMINATION: right cva pain, N/V, r/o renal stone; ; CLINICAL HISTORY: Abdominal pain.; TECHNIQUE: Multiple axial, sagittal and coronal CT images were obtained through the abdomen and pelvi; s without administration of oral or IV contrast material.; COMMENTS:; The liver is of uniform attenuation without mass or defect. There is no intra or extrahepatic biliary; ductal dilatation. The spleen is normal. The gallbladder is within normal limits. The pancreas is of; normal contour and attenuation characteristics. There is no evidence of adrenal mass.; The kidneys are normal in size, shape and configuration. No right renal or ureteral calculi are ident; ified. 2 nonobstructing calculi noted in the midpole the left kidney measuring 2-3 mm each. There i; s no hydroureter or hydronephrosis.; There is no evidence for appendicitis. There is no bowel wall thickening. No evidence for small or la; rge bowel obstruction. There is no evidence of abdominal ascites or lymphadenopathy.; There is no evidence of intrinsic or extrinsic bladder mass. There is no pelvic ascites or lymphadeno; daisha.; Images of the lung bases show no evidence of pleural or parenchymal mass. There are no pleural effusi; ons.; The bony structures are free of lytic or blastic lesions.; IMPRESSION:; 2 nonobstructing calculi noted in the midpole the left kidney measuring 2-3 mm each.; Thank you for your kind referral of this patient.; ; Outcome: 20:59 Discharge ordered by Provider. ck7 21:15 Discharge Assessment: Patient awake, alert and oriented x 3. No cognitive and/or cz functional deficits noted. Patient verbalized understanding of disposition instructions. patient administered narcotics - no. The following High Risk Discharge criteria are identified: None. Discharged to pt discharged back to [facility] with 2 officers. Condition: stable. Discharge instructions given to patient, police, Instructed on discharge instructions, follow up and referral plans. medication usage, Demonstrated understanding of instructions, medications, Pt was receptive of discharge instructions/ teaching. Prescriptions given X 3. CT Study completed. Property :Personal belongings accompany Pt. 21:18 Patient left the ED. valarie Signatures: Dispatcher [employer] EDMS Oneil Cain, RN RN Thelma Franco, Reg Reg gb Josi Chance, RN RN Mykel Thomas, RPA-C [id number] Raine Enrique, BUILDING CARPENTER HELPER BUILDING CARPENTER HELPER Warren Pedro,RN RN Jah Stewart, BUILDING CARPENTER HELPER BUILDING CARPENTER HELPER Angela Jett, Reg Reg [email or web address] Chart Complete MTDD
== END 2016-11-20 21:18 | disposition home or self-care (01) ==
LOC: M ED 18:19
DX: N20.0 Calculus of kidney (principal); R31.9 Hematuria, unspecified; R11.2 Nausea with vomiting, unspecified; M54.5 Low back pain
CPT/HCPCS: 36415; 74176; 80048; 80076; 81001; 82150; 82360; 83690; 85025; 87086; 96361; 96374; 96375; 99284; J1885; J2405